=== PATIENT | male | born 1970 | race Caucasian/White ===

== ENCOUNTER → 2021-08-25 09:16 | Outpatient (CLI) | payer BC, SELFPAY ==
--- NOTE | ~2021-08-25 | XR_ITS ---
XR chest 2V DATE: 08/25/2021 09:38 INDICATION: Cough TECHNIQUE: PA and lateral views COMPARISON: 04/17/2014 2 view chest FINDINGS: Normal heart size. No hilar or mediastinal enlargement. Minimal atelectasis is suggested at the lung bases. No pulmonary infiltrate or consolidation, pleural effusion or pulmonary vascular con gestion or pneumothorax is noted otherwise. Status post lower anterior cervical spine surgical fusion IMPRESSION: Minimal atelectasis at the lung bases Reviewed, dictated and finalized at location A.
== END ==
PROVIDERS: PCP Nurse Practitioner Family; Visit Provider Nurse Practitioner Family
DX: R05.1 Acute cough (principal)
CPT/HCPCS: 71046

== ENCOUNTER 2022-03-30 01:23 | Day surgery (SDC) | payer BC, SELFPAY ==
--- NOTE | 2022-03-17 11:59 | PC.NURSE ---
Message left on voicemail regarding upcoming procedure. Instructed to return call for instructions.
[2022-03-22 14:43] VITALS: BMI 33.0
--- NOTE | 2022-03-30 06:47 | PM.HPGS ---
History of Present Illness History of Present Illness Consent: Risks, benefits, and alternatives have been discussed and questions answered. Patient agrees to proceed with procedure. Chief complaint: neoplasm screening Narrative: Fady Thompson is a 51 year old male Referred for colon cancer screening. Review of Systems Review of Systems: All systems reviewed & are unremarkable except as noted in HPI and below [facility] Social History Social History Living arrangements: with family Meds Home Medications and Allergies Home Medications Medication Instructions Recorded Confirmed Type losartan 50 mg tablet 50 mg PO DAILY 03/22/22 03/30/22 History Allergies Allergy/AdvReac Type Severity Reaction Status Date / Time No Known Allergies Allergy Verified 03/30/22 12:51 Exam Const: General: alert Orientation/consciousness: patient oriented x3 Resp: Auscultation: clear to auscultation bilaterally Cardio: Rhythm: regular rhythm GI: GI Palp: Yes Soft to palpation and No Tenderness to palpation present (GI) Neuro: General: patient oriented x3 Assessment and Plan Assessment and plan (1) Colon cancer screening: Code(s): Z12.11 - Encounter for screening for malignant neoplasm of colon Status: Acute Assessment and Plan: Colonoscopy with possible biopsy or polypectomy or cautery or injection of substances.
[2022-03-30 12:52] VITALS: BP 139/89; PULSE 70; RESP 18; TEMP 36.2; O2SAT 100
[2022-03-30] MEDS: LACTATED RINGERS 1,000 ML 150 ML IV CONT (12:54)
--- NOTE | 2022-03-30 13:24 | P.PNAN_ITS ---
Anes - Initial Pre Proc Eval Procedure: Operation Date: 03/30/22 14:00 Proposed Procedures p Screening Colonoscopy - Jessee Bauer MD Date/Time: 03/30/22 13:24 Surgeon: Jessee Bauer MD Pre Op Diagnosis: neoplasm screening Patient Data Age: 51 Gender: M Height: 1.98 m Weight: 127.3 kg Last Vital Signs Temp 97.1 F L 03/30/22 12:52 Pulse 70 03/30/22 12:52 Resp 18 03/30/22 12:52 BP 139/89 03/30/22 12:52 Pulse Ox 100 03/30/22 12:52 O2 Del Method Room Air 03/30/22 12:52 Allergies Allergy/AdvReac Type Severity Reaction Status Date / Time No Known Allergies Allergy Verified 03/30/22 12:51 Home Medications Medication Instructions Recorded Confirmed Type losartan 50 mg tablet 50 mg PO DAILY 03/22/22 03/30/22 History Patient hx anesthesia problems: none Family hx anesthesia problems: none Results Review: All pre-operative results and documents have been reviewed as part of the pre- operative evaluation. [facility] Social History Social History Living arrangements: with family Anes - Eval Final PreProcedure Day of Procedure 03/30/22 13:24 Patient weight: obese Heart: regular rate and rhythm Lungs: clear to auscultation Airway: Mallampati scale class II Neurological: alert and oriented Last oral intake: >/= 8 hours ASA classification: II Emergent: no Anesthetic plan: proceed Anesthesia type and monitoring: general GIVS and standard monitoring Results Review: All pre-operative results and documents have been reviewed as part of the pre- operative evaluation. Informed Consent: The patient's anesthetic plan and its attendant risks and benefits were discussed with the patient/family/POA. Questions were solicited and answers provided to the satisfaction of the patient/family/POA.
[2022-03-30 14:09] VITALS: BP 138/84; PULSE 79; RESP 23; O2SAT 100
[2022-03-30 14:19] VITALS: BP 141/94; PULSE 75; RESP 20; O2SAT 100
[2022-03-30 14:29] VITALS: BP 143/94; PULSE 64; RESP 20; O2SAT 100
== END 2022-03-30 14:37 | disposition home or self-care (01) ==
PROVIDERS: PCP Nurse Practitioner Family; Visit Provider Internal Medicine Gastroenterology
PROC: 0DJD8ZZ Inspection of Lower Intestinal Tract, Via Natural or Artificial Opening Endoscopic (ICD-10-PCS; CPT 45378; principal; 2022-03-30 14:00)
DX: Z12.11 Encounter for screening for malignant neoplasm of colon (principal); K57.30 Diverticulosis of large intestine without perforation or abscess without bleeding; E66.9 Obesity, unspecified; Z68.32 Body mass index [BMI] 32.0-32.9, adult
CPT/HCPCS: 45378; J2704; J7120

== ENCOUNTER 2025-05-20 12:49 | Outpatient (CLI) | payer BC, SELFPAY ==
--- NOTE | ~2025-05-20 | XR_ITS ---
[id number] 05/20/2025 13:10 Indication: Cervicalgia Procedure: 3 view cervical spine Comparison: No prior studies for comparison. Findings: Status post anterior fusion and discectomy at C5-6. There is moderate degenerative spondylosis at C6-7. No acute fracture or traumatic malalignment. 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 No prevertebral soft tissue swelling. No acute fracture or traumatic malalignment. Lung apices are normal. Impression: 1: Moderate spondylosis at C6-7. Reviewed, dictated and finalized at location O. IO HAND Impression: 1: Moderate spondylosis at C6-7.
== END 2025-05-20 12:50 | disposition home or self-care (01) ==
PROVIDERS: PCP Physician Assistant; Visit Provider Physician Assistant
DX: M47.812 Spondylosis without myelopathy or radiculopathy, cervical region (principal)
CPT/HCPCS: 72040